=== PATIENT | female | born 1990 | race Caucasian/White ===

== ENCOUNTER 2024-09-17 18:45 | Emergency (ER) | payer MEDICAID ==
[~2024-09-17] VITALS: Ht 172.7 cm; Wt 70.3 kg
[2024-09-17 18:50] VITALS: BP 141/80; PULSE 93; RESP 18; TEMP 99.5; O2SAT 99
[2024-09-17 21:24] VITALS: O2SAT 99
[2024-09-17] MEDS: DEXAMETHASONE 10 MG/ML VIAL PO ONE (21:43)
[2024-09-17] MEDS ORDERED: AMOX1TAB8 PO (21:44)
[2024-09-17 21:50] VITALS: BP 141/80; PULSE 93; RESP 18; TEMP 99.5; O2SAT 99
== END 2024-09-17 21:50 | disposition home or self-care (01) ==
LOC: MED 18:45
DX: J04.0 Acute laryngitis (principal); R03.0 Elevated blood-pressure reading, without diagnosis of hypertension; Z79.899 Other long term (current) drug therapy
CPT/HCPCS: 99283; J1100